=== PATIENT | male | born 1995 | race African-American/Black ===

== ENCOUNTER 2023-04-05 09:58 | Day surgery (SDC) | payer OTHER ==
[2023-04-04 15:50] VITALS: BMI 48.1
[~2023-04-05 09:58] MED LIST: BUPIVACAINE HCL/PF 0.25% (2.5MG/ML) 10 ML VIAL IJ ONE
[2023-04-05] MEDS ORDERED: BUPIVACAINE HCL/PF 2.5 MG/ML - 30 ML VIAL IJ ONE (11:34)
[2023-04-05] MEDS ORDERED: PROPOFOL 40 ML ONE (12:34)
[2023-04-05] MEDS ORDERED: MIDAZOLAM HCL 2 MG/2 ML SINGLE DOSE VIAL ONE (12:35)
[2023-04-05] MEDS ORDERED: ACETAMINOPHEN 325 MG TABLET (FP) PO PRN (13:33)
[2023-04-05] MEDS ORDERED: ONDANSETRON 4 MG/2 ML VIAL IVPUSH PRN (13:33)
[2023-04-05] MEDS ORDERED: oxyCODONE HCL 5 MG TABLET PO PRN (13:33)
[2023-04-05] MEDS ORDERED: ACETAMINOPHEN INJECTION 100 ML IVPB ONE (13:41)
[2023-04-05] MEDS ORDERED: ACETAMINOPHEN 1000 MG/100 ML BAG IVPB ONE ×2 (13:43→14:16)
[2023-04-05] MEDS ORDERED: LACTATED RINGERS SOLUTION 1,000 ML IV SCH (13:45)
[2023-04-05] MEDS ORDERED: FENTANYL CITRATE/PF 50 MCG/ML VIAL ONE (14:23)
[2023-04-05] MEDS ORDERED: oxyCODONE HCL 5 MG TABLET ONE (14:45)
[2023-04-05 16:58] VITALS: TEMP 97.5
[2023-04-05 17:01] VITALS: BP 138/67; PULSE 81; RESP 18
== END 2023-04-05 15:09 | disposition home or self-care (01) ==
LOC: FASU 09:58
PROVIDERS: ATTEND Orthopaedic Surgery
PROC: 0SBC4ZZ Excision of Right Knee Joint, Percutaneous Endoscopic Approach (ICD-10-PCS; 2023-04-05)
PROC: 0SBC4ZZ Excision of Right Knee Joint, Percutaneous Endoscopic Approach (ICD-10-PCS; principal; 2023-04-05 13:07)
DX: S83.241A Other tear of medial meniscus, current injury, right knee, initial encounter (principal); S83.281A Other tear of lateral meniscus, current injury, right knee, initial encounter; S83.8X1A Sprain of other specified parts of right knee, initial encounter; M65.861 Other synovitis and tenosynovitis, right lower leg; X58.XXXA Exposure to other specified factors, initial encounter; Y93.9 Activity, unspecified; Y92.9 Unspecified place or not applicable
CPT/HCPCS: 94760